=== PATIENT | female | born 1930 | race African-American/Black ===

== ENCOUNTER 2017-04-16 12:50 | Inpatient (IN) | payer MEDICARE, BC ==
[~2017-04-16] VITALS: Ht 157.5 cm; Wt 49.0 kg
[2017-04-16] MEDS ORDERED: LACTATED RINGERS 1,000 ML IV ONE (13:50)
[2017-04-16 14:46] LABS: BASOPHILS % 0.2 % (0.0-2.0); EOSINOPHILS % 0.1 % (0.0-5.0); HEMATOCRIT. 40.3 % (36.0-48.0); HEMOGLOBIN. 13.1 g/dL (12.0-16.0); MEAN CORPUSCULAR VOLUME 92.7 fL (81.0-99.0); MEAN PLATELET VOLUME 7.3 fl (7.4-10.4); NEUTROPHILS % 71.7 % (40.0-76.0); PLATELET 250 x1000/uL (130-400); RED BLOOD CELL COUNT 4.35 mill/uL (4.2-5.4); RED CELL DISTRIBUTION WIDTH 13.6 % (11.6-14.6)
[2017-04-16] MEDS ORDERED: PROPOFOL 200MG/20ML VIAL IV ONE (14:48)
[2017-04-16] MEDS ORDERED: MIDAZOLAM HCL 2 MG/2 ML VIAL ONE (14:48)
[2017-04-16] MEDS ORDERED: FENTANYL CITRATE/PF 50MCG/ML 2ML VIAL ONE (14:48)
[2017-04-16 14:57] LABS: AMMONIA < 10 uMol/L (<32)
[2017-04-16 14:58] LABS: CHLORIDE 110 mEq/L (98-107)
[2017-04-16] MEDS ORDERED: MEPERIDINE HCL/PF 25MG/ML CPJ IV PRN (15:00)
[2017-04-16] MEDS ORDERED: LABETALOL 5MG/ML SYR 20 MG/4 ML SYRINGE IV PRN (15:00)
[2017-04-16] MEDS ORDERED: HYDROMORPHONE HCL/PF 2MG/ML CPJ IV PRN (15:00)
[2017-04-16] MEDS ORDERED: ONDANSETRON HCL 4MG/2ML VIAL IV PRN ×2 (15:00→16:30)
[2017-04-16 15:01] LABS: CLARITY URINE CLEAR (CLEAR); COLOR URINE DARK YELLOW (YELLOW); KETONES URINE TRACE (NEGATIVE); LEUKOCYTE ESTERASE URINE NEGATIVE (NEGATIVE); NITRITE URINE NEGATIVE (NEGATIVE); OCCULT BLOOD URINE NEGATIVE (NEGATIVE); PH URINE 5.5 (4.5-8.0); PROTEIN URINE 2+ (NEGATIVE); SPECIFIC GRAVITY URINE 1.023 (1.005-1.030)
[2017-04-16] MEDS ORDERED: DEXAMETHASONE 4MG/ML 1ML VIAL ONE (15:05)
[2017-04-16] MEDS ORDERED: CEFAZOLIN 1000MG PREMIX 50 ML IV ONE (15:45)
[2017-04-16] MEDS ORDERED: DOCUSATE SODIUM 100MG CAPSULE PO PRN (16:30)
[2017-04-16] MEDS ORDERED: GUAIFENESIN 200MG/10ML SUGAR FREE UDC PO PRN (16:30)
[2017-04-16] MEDS ORDERED: TRAMADOL 50MG TABLET PO PRN (16:30)
[2017-04-16] MEDS ORDERED: MAGNESIUM/ALUMINUM HYDROXIDE/SIMETHICONE 30ML UDC PO PRN (16:30)
[2017-04-16] MEDS ORDERED: ACETAMINOPHEN 325MG TABLET PO PRN (16:30)
[2017-04-16] MEDS ORDERED: MORPHINE SULFATE 4 MG/ML CPJ (NOT FOR IM USE) IV PRN (16:30)
[2017-04-16] MEDS ORDERED: NA PHOS,M-B/NA PHOS,DI-BA ENEMA 118ML PR PRN (16:30)
[2017-04-16] MEDS ORDERED: IPRATROPIUM/ALBUTEROL 0.5-3(2.5)MG/3ML NEB INH PRN (16:30)
[2017-04-16] MEDS ORDERED: CLONIDINE 0.1MG TABLET PO PRN (16:30)
[2017-04-16] MEDS: DEXT 5%/0.45% NACL 1000ML 1,000 ML IV SCH (18:43)
[2017-04-16 19:00] LABS: T4 FREE 1.1 ng/dL (0.76-1.46)
[2017-04-16 19:20] LABS: FOLIC ACID (FOLATE) SERUM 16.1 ng/mL (>5.38)
[2017-04-16 20:00] VITALS: BP 166/64
[2017-04-16] MEDS: ASCORBIC ACID 500 MG TABLET PO SCH (21:56)
[2017-04-16] MEDS: ENOXAPARIN 30MG/0.3ML SYR SUBCUT SCH (21:56)
[2017-04-16] MEDS: LEVOFLOXACIN 250MG PREMIX 50 ML IV SCH (21:57)
[2017-04-17] VITALS: BP 155/75
[2017-04-17 04:00] VITALS: BP 141/52
[2017-04-17] MEDS: DEXT 5%/0.45% NACL 1000ML 1,000 ML IV SCH ×2 (06:26→18:00)
[2017-04-17 08:00] VITALS: BP 100/70
[2017-04-17] MEDS: PANTOPRAZOLE SODIUM 40 MG/VIAL IV SCH (09:13)
[2017-04-17] MEDS: ASCORBIC ACID 500 MG TABLET PO SCH ×2 (09:13→22:08)
[2017-04-17 11:56] VITALS: BP 113/94
[2017-04-17 16:00] VITALS: BP 104/71
[2017-04-17] MEDS: ENOXAPARIN 30MG/0.3ML SYR SUBCUT SCH (17:57)
[2017-04-17 20:00] VITALS: BP 131/66
[2017-04-17] MEDS: LEVOFLOXACIN 250MG PREMIX 50 ML IV SCH (22:08)
[2017-04-17] MEDS: DIPHENHYDRAMINE 50MG/ML VIAL IV PRN (22:09)
[2017-04-18] VITALS: BP 117/57
[2017-04-18 04:00] VITALS: BP 105/49
[2017-04-18 08:00] VITALS: BP 123/50
[2017-04-18] MEDS: PANTOPRAZOLE SODIUM 40 MG/VIAL IV SCH (09:29)
[2017-04-18] MEDS: ASCORBIC ACID 500 MG TABLET PO SCH (09:29)
[2017-04-18] MEDS: DEXT 5%/0.45% NACL 1000ML 1,000 ML IV SCH ×2 (09:29→10:00)
[2017-04-18] MEDS: DIPHENHYDRAMINE 50MG/ML VIAL IV PRN (09:38)
[2017-04-18] MEDS ORDERED: LEVOFLOXACIN 250MG TABLET GT SCH (11:00)
[2017-04-18 12:00] VITALS: BP 126/50
[2017-04-18 14:24] VITALS: BP 126/50
== END 2017-04-18 14:42 | disposition home or self-care (01) | DRG 91 ==
LOC: OR 12:50 → 6EST 17:21
PROVIDERS: ADMIT Internal Medicine; ATTEND Internal Medicine
PROC: 0DH63UZ Insertion of Feeding Device into Stomach, Percutaneous Approach (ICD-10-PCS; principal; 2017-04-16 15:00)
DX: G92 Toxic encephalopathy (principal); N17.0 Acute kidney failure with tubular necrosis; E87.0 Hyperosmolality and hypernatremia; E44.0 Moderate protein-calorie malnutrition; N39.0 Urinary tract infection, site not specified; Z68.1 Body mass index [BMI] 19.9 or less, adult; K29.70 Gastritis, unspecified, without bleeding; K26.9 Duodenal ulcer, unspecified as acute or chronic, without hemorrhage or perforation; E86.0 Dehydration; M19.90 Unspecified osteoarthritis, unspecified site; R62.7 Adult failure to thrive; F03.90 Unspecified dementia, unspecified severity, without behavioral disturbance, psychotic disturbance, mood disturbance, and anxiety; K29.80 Duodenitis without bleeding; Z66 Do not resuscitate; Z90.49 Acquired absence of other specified parts of digestive tract; Z85.038 Personal history of other malignant neoplasm of large intestine; Z87.440 Personal history of urinary (tract) infections; Z91.81 History of falling
CPT/HCPCS: 36415; 70551; 80053; 81003; 82140; 82378; 82607; 82746; 83540; 83550; 84439; 84443; 85025; 93005; 93970; C9113; J0690; J1100; J1200; J1650; J1956; J2250; J2405; J2704; J3010; J3490; J7120

== ENCOUNTER 2017-04-23 11:44 | Day surgery (SDC) | payer MEDICARE, BC ==
[~2017-04-23] VITALS: Ht 157.5 cm; Wt 49.4 kg
[2017-04-23] MEDS ORDERED: LACTATED RINGERS 1,000 ML IV SCH (12:00)
[2017-04-23] MEDS ORDERED: PROPOFOL 200MG/20ML VIAL IV ONE ×2 (12:15→12:32)
[2017-04-23] MEDS ORDERED: MIDAZOLAM HCL 2 MG/2 ML VIAL ONE (12:17)
[2017-04-23] MEDS ORDERED: CEFAZOLIN 1000MG PREMIX 50 ML IV NR (13:45)
== END 2017-04-23 14:15 | disposition home or self-care (01) ==
LOC: OR 11:44 → EDSTATUS 13:00 → OR 14:15
PROVIDERS: ATTEND Internal Medicine Gastroenterology
DX: T85.518A Breakdown (mechanical) of other gastrointestinal prosthetic devices, implants and grafts, initial encounter (principal); K29.70 Gastritis, unspecified, without bleeding; F03.90 Unspecified dementia, unspecified severity, without behavioral disturbance, psychotic disturbance, mood disturbance, and anxiety; E46 Unspecified protein-calorie malnutrition; I10 Essential (primary) hypertension; E11.9 Type 2 diabetes mellitus without complications; I48.92 Unspecified atrial flutter; M19.90 Unspecified osteoarthritis, unspecified site; Z85.038 Personal history of other malignant neoplasm of large intestine; Z98.890 Other specified postprocedural states
CPT/HCPCS: 49440; C1893; J0690; J2250; J7120; J2704